=== PATIENT | female | born 1965 | race Caucasian/White ===

== ENCOUNTER 2016-07-30 21:03 | Emergency (ER) | payer MEDICARE, MEDICAID ==
[~2016-07-30] VITALS: Ht 144.8 cm; Wt 64.9 kg
[2016-07-30] MEDS ORDERED: QUET25TA PO (21:54)
[2016-07-30] MEDS ORDERED: QUET200T57 PO (21:54)
[2016-07-30] MEDS ORDERED: OMEP20CA12 PO (21:54)
[2016-07-30] MEDS ORDERED: QUET100T69 PO (21:54)
[2016-07-30] MEDS ORDERED: CITA20TA7 PO (21:54)
[2016-07-30] MEDS ORDERED: TETANUS,DIPTH,PERTUSS P/F (BOOSTRIX) 0.5 ML VIAL IM ONE (22:15)
[2016-07-30] MEDS ORDERED: L.E.T. SYRINGE 5 ML TOP ONE (22:15)
--- NOTE | 2016-07-30 23:11 | ED General ---
General Chief Complaint: Laceration Stated Complaint: R LEG LAC Nursing Triage Note: LACERATION TO RIGHT DISTAL LEG Nursing Sepsis Screen: No Definite Risk Source of Information: Caregiver Exam Limitations: No Limitations History of Present Illness Time Seen by Provider: 21:51 Initial Comments This 51-year-old developmentally disabled woman is brought to the emergency room by her caregiving staff. She reportedly got her right lower leg caught in the mechanism of a recliner leg rest. Her leg was between the chair and leg rest when the recliner was folded. She then attempted to pull her leg out and a lacerated the skin over her vázquez. The laceration is approximately 7 cm in length. It is no longer bleeding. Patient is not up-to-date on her tetanus immunizations. No other injuries were identified. She has been able to bear weight on the limb since then. Allergies and Home Medications Allergies Coded Allergies: clindamycin (Verified Allergy, Unknown, 06/21/05) tetracycline (Verified Allergy, Unknown, 07/30/16) Home Medications Citalopram Hydrobromide 20 Mg Tablet, 1 TAB PO UD, #28 (Reported) Omeprazole 20 Mg Capsule.dr, 1 CAP PO UD, #28 (Reported) Quetiapine Fumarate 100 Mg Tablet, 1 TAB PO UD, #28 (Reported) Quetiapine Fumarate 200 Mg Tablet, 1 TAB PO UD, #56 (Reported) Quetiapine Fumarate 25 Mg Tablet, Unknown Dose PO, (Reported) Constitutional: no symptoms reported EENTM: no symptoms reported Respiratory: no symptoms reported Cardiovascular: no symptoms reported Gastrointestinal: no symptoms reported Genitourinary: no symptoms reported Musculoskeletal: no symptoms reported Skin: see HPI Psychiatric/Neurological: See HPI Hematologic/Lymphatic: No Symptoms Reported Past Mwkwkml-Vetuyb-Dirlfn Hx Patient Social History Alcohol Use: Denies Use Recreational Drug Use: No Smoking Status: Never a Smoker Recent Foreign Travel: No Contact w/Someone Who Travel: No Recent Infectious Disease Expo: No Recent Hopitalizations: No Immunizations Up To Date Tetanus Booster (TDap): More than 5yrs Seasonal Allergies Seasonal Allergies: No Surgeries HX Surgeries: Yes (DENTAL) Surgeries: Orthopedic Respiratory Hx Respiratory Disorders: No Cardiovascular Hx Cardiac Disorders: No Neurological Hx Neurological Disorders: Yes (developmental disabilities) Neurological Disorders: TIA Genitourinary Hx Genitourinary Disorders: No Gastrointestinal Hx Gastrointestinal Disorders: Yes Gastrointestinal Disorders: Gastroesophageal Reflux Musculoskeletal Hx Musculoskeletal Disorders: Yes Musculoskeletal Disorders: Foot Drop Endocrine Hx Endocrine Disorders: No HEENT HX ENT Disorders: No Cancer Hx Cancer: No Psychosocial Hx Psychiatric Problems: Yes Behavioral Health Disorders: Violent Behavior Integumentary HX Skin/Integumentary Disorder: No Blood Transfusions Hx Blood Disorders: No Physical Exam Vital Signs Vital Sign - Last 12Hours 07/30/16 21:55 Temp 98.1 Pulse 89 Resp 18 B/P (MAP) 113/82 Pulse Ox 96 O2 Delivery Room Air Capillary Refill : Less Than 3 Seconds General Appearance: No Apparent Distress, WD/WN HEENT: Normal ENT Inspection Extremity: Other (baseline contractures. 7 cm laceration on the right anterior lower leg into the subcutaneous tissue. No active bleeding.) Neurologic/Psychiatric: Other (cognitive deficits at baseline) Skin: Normal Color, Warm/Dry, Other (see above) Laceration Repair : Wound Location: Lower Extremities Other Wound Location Right anterior lower leg Wound Length (cm): 7 Wound's Depth, Shape: linear, sub Q Wound Explored: clean Irrigated w/ Saline (ccs): 500 Betadine Prep?: Yes Staple Repair: Stapler 35W, Patient Given Remover Progress Wound was anesthetized topically with LET. It was then rinsed under pressure with 500 mL normal saline. Betadine was applied. Skin was approximated with 11 ivet. Patient tolerated the procedure well. Progress/Results/Core Measures Results/Orders My Orders Orders - BILL PIERCE MD Let Solution (Let Solution) (07/30/16 22:15) Dipht,Pertuss(Acell),Tet Adult (Boostrix (07/30/16 22:15) Tibia/Fibula, Right, 2 Views (07/30/16 22:01) Medications Given in ED Current Medications Medications Dose Ordered Sig/Heather Route Start Time Stop Time Status Last Admin Dose Admin Diphtheria/ Tetanus/Acell Pertussis 0.5 ml ONCE ONCE IM 07/30/16 22:15 07/30/16 22:16 DC 07/30/16 22:08 0.5 ML Tetracaine/ Epinephrine/ Lidocaine 1 ea ONCE ONCE TOP 07/30/16 22:15 07/30/16 22:16 DC 07/30/16 22:08 1 EA Vital Signs/I&O Vital Sign - Last 12Hours 07/30/16 07/30/16 07/30/16 21:55 22:08 23:16 Temp 98.1 98.1 98.0 Pulse 89 84 Resp 18 18 B/P (MAP) 113/82 Pulse Ox 96 95 O2 Delivery Room Air Blood Pressure Mean: 92 Progress Note : Progress Note LET was applied for topical anesthesia. The 7 cm laceration was cleaned and repaired with 11 ivet. Patient was given a Boostrix tetanus booster. X-ray showed no evidence of bony injury. Diagnostic Imaging Diagonstic Imaging: Xray Plain Films/CT/US/NM/MRI: leg Comments Right tib-fib x-ray was viewed by me. Report not yet available. No bony injuries or foreign bodies identified. Departure Impression Impression: Primary Impression: Laceration of leg Qualified Codes: S81.811A - Laceration without foreign body, right lower leg, initial encounter Disposition: HOME, SELF-CARE Condition: Improved Departure-Patient Inst. Decision time for Depature: 23:00 Referrals: [facility] (PCP) Primary Care Physician MECHELLE WESTON (Family) Primary Care Physician Patient Instructions: Laceration Repair With Ivet (DC) Add. Discharge Instructions: Keep the wound clean and dry. Cover until drainage stops. You may apply antibiotic ointment to prevent dressing from sticking. You may shower as usual but avoid submerging until ivet are removed. Remove ivet in about 10 days. Monitor for signs of infection including increasing redness, increasing pain, increasing swelling, puslike drainage, or fever. Return to care if you notice any of these symptoms. Give Tylenol (acetaminophen) up to 1000 mg every 6 hours as needed for pain. All discharge instructions reviewed with patient and/or family. Voiced understanding. BILL PIERCE MD Jul 30, 2016 23:10
[2016-07-30 23:16] VITALS: BP 108/80
--- NOTE | 2016-07-31 08:12 | Diagnostic Imaging Report ---
EXAMINATION: 2 views of the right tibia and fibula. INDICATION: Laceration in the lower right leg. FINDINGS: No fracture, dislocation or radiopaque foreign body seen. The proximal and distal joints appear grossly unremarkable. Suggestion of soft tissue laceration in the lower leg is noted with no radiopaque foreign body or significant soft tissue gas seen. IMPRESSION: No fracture seen. No radiopaque foreign body. Dictated by: Dictated on workstation # [id number]
== END 2016-07-30 23:14 | disposition home or self-care (01) ==
LOC: EDUNIT# 21:03 → ER 21:05
DX: S81.811A Laceration without foreign body, right lower leg, initial encounter (principal); Z23 Encounter for immunization; F79 Unspecified intellectual disabilities; W22.03XA Walked into furniture, initial encounter; Y92.009 Unspecified place in unspecified non-institutional (private) residence as the place of occurrence of the external cause; Y99.8 Other external cause status
CPT/HCPCS: 12002; 73590; 90471; 90715

== ENCOUNTER 2016-08-10 12:36 | Emergency (ER) | payer MEDICARE, MEDICAID ==
[~2016-08-10] VITALS: Ht 144.8 cm; Wt 64.9 kg
[~2016-08-10 12:36] MED LIST: CITA20TA7 PO; OMEP20CA12 PO; QUET100T69 PO; QUET200T57 PO; QUET25TA PO
[2016-08-10] MEDS ORDERED: L.E.T. SYRINGE 5 ML MM STA (12:42)
--- NOTE | 2016-08-10 13:28 | ED Fall/Injury ---
General Chief Complaint: Trauma-Non Activation Stated Complaint: FALL Source: patient Exam Limitations: no limitations History of Present Illness Time seen by provider: 12:40 Initial Comments Here with report of fall out of her chair today. Patient is very MR and apparently fell forward and hit her head. She has a 2 cm superficial laceration to the left upper forehead. No other injuries from this incident. She has a healing wound on the right lower extremity from previous injury that is now red and inflamed. No fevers reported. Patient is unable to answer for self. Occurred: just prior to arrival Severity: mild Injuries/Pain Location: head Context: unknown Loss of Consciousness: no loss of consciousness Associated Symptoms (Fall): No Nausea/Vomiting Allergies and Home Medications Allergies Coded Allergies: clindamycin (Verified Allergy, Unknown, 06/21/05) tetracycline (Verified Allergy, Unknown, 07/30/16) Home Medications Citalopram Hydrobromide 20 Mg Tablet, 1 TAB PO UD, #28 (Reported) Omeprazole 20 Mg Capsule.dr, 1 CAP PO UD, #28 (Reported) Quetiapine Fumarate 100 Mg Tablet, 1 TAB PO UD, #28 (Reported) Quetiapine Fumarate 200 Mg Tablet, 1 TAB PO UD, #56 (Reported) Quetiapine Fumarate 25 Mg Tablet, Unknown Dose PO, (Reported) Constitutional: see HPI, No chills, No fever Gastrointestinal: No diarrhea, No vomiting Musculoskeletal: no symptoms reported Skin: see HPI, other (redness and drainage from right lower extremity wound) Other Unable to complete review of systems due to patient's underlying MR condition. Past Lggfzpv-Lvbmbr-Ptmusg Hx Patient Social History Alcohol Use: Denies Use Recreational Drug Use: No Smoking Status: Never a Smoker 2nd Hand Smoke Exposure: No Recent Hopitalizations: No Immunizations Up To Date Tetanus Booster (TDap): More than 5yrs Seasonal Allergies Seasonal Allergies: No Surgeries HX Surgeries: Yes (DENTAL) Surgeries: Orthopedic Respiratory Hx Respiratory Disorders: No Cardiovascular Hx Cardiac Disorders: No Neurological Hx Neurological Disorders: Yes (developmental disabilities) Neurological Disorders: TIA Genitourinary Hx Genitourinary Disorders: No Gastrointestinal Hx Gastrointestinal Disorders: Yes Gastrointestinal Disorders: Gastroesophageal Reflux Musculoskeletal Hx Musculoskeletal Disorders: Yes Musculoskeletal Disorders: Foot Drop Endocrine Hx Endocrine Disorders: No HEENT HX ENT Disorders: No Cancer Hx Cancer: No Psychosocial Hx Psychiatric Problems: Yes Behavioral Health Disorders: Violent Behavior Integumentary HX Skin/Integumentary Disorder: No Blood Transfusions Hx Blood Disorders: No Reviewed Nursing Assessment Reviewed/Agree w Nursing PMH: Yes Physical Exam Vital Signs Capillary Refill : General Appearance: WD/WN, no apparent distress HEENT: PERRL/EOMI, TMs normal Neck: full range of motion, supple Cardiovascular: regular rate, rhythm, no murmur Respiratory: lungs clear, normal breath sounds Neurologic/Psychiatric: alert, normal mood/affect Skin: warm/dry, other (wound to right lower extremity with surrounding erythema and clear drainage. Wound to forehead is superficial and 2 cm with bleeding controlled.) Comments Patient is awake and alert and responsive to family. Laceration Repair : Wound Location: Face Other Wound Location Left upper forehead Wound Length (cm): 2 Wound's Depth, Shape: superficial Wound Explored: contaminated Irrigated w/ Saline (ccs): 50 Betadine Prep?: No (Hibiclens) Anesthesia: Lidocaine w/ Epi (LET) Volume Anesthetic (ccs): 4 Wound Debrided: minimal Other Closure Supply: Wound Adhesive Progress/Results/Core Measures Results/Orders My Orders Orders - BERNARD FRIED MD Let Solution (Let Solution) (08/10/16 12:42) Progress Note : Progress Note Seen and evaluated. LET applied to wound after wound cleaned. We will be unable to do CT scan as patient would not tolerate holding still for the scan. This was discussed with the family who agree. Wound closed with skin glue with good approximation. We will initiate outpatient treatment for wound infection to the right lower extremity with outpatient antibiotics. Discharged home with return precautions. Family verbalize understanding of instructions and agreement with plan. Departure Impression Impression: Primary Impression: Forehead laceration Qualified Codes: S01.81XA - Laceration without foreign body of other part of head, initial encounter Additional Impression: Wound infection, posttraumatic Disposition: 01 HOME, SELF-CARE Condition: Improved Departure-Patient Inst. Decision time for Depature: 13:45 Referrals: [facility] (PCP/Family) Primary Care Physician Patient Instructions: Cellulitis (Skin Infection), Adult (DC), Laceration Repair With Glue (DC) Add. Discharge Instructions: All discharge instructions reviewed with patient and/or family. Voiced understanding. You may use antibiotic ointment over the wound on the leg. Do not use antibiotic ointment on the wound of the forehead. You may keep wounds covered with Band-Aid. Do not pick skin glue off until it is completely released. This should be in for 5 days. If glue comes off earlier, cover with a Band- Aid. Return for worse pain, swelling, red streaks expanding from the wound or other concerns as needed. Scripts Sulfamethoxazole/Trimethoprim (Sulfamethoxazole-Tmp Ds Tablet) 1 Each Tablet 1 EACH PO BID, #20 TAB 0 Refills Prov: BERNARD FRIED MD 08/10/16 BERNARD FRIED MD Aug 10, 2016 13:28
[2016-08-10] MEDS ORDERED: SULF-222 PO (13:49)
[2016-08-10 14:27] VITALS: BP 138/98
== END 2016-08-10 14:27 | disposition home or self-care (01) ==
LOC: EDUNIT# 12:36 → ER 12:37
DX: S01.81XA Laceration without foreign body of other part of head, initial encounter (principal); L03.115 Cellulitis of right lower limb; F72 Severe intellectual disabilities; W07.XXXA Fall from chair, initial encounter; Y92.129 Unspecified place in nursing home as the place of occurrence of the external cause; Y99.8 Other external cause status
CPT/HCPCS: 12001

== ENCOUNTER 2016-11-11 13:30 | Outpatient (RCR) | payer MEDICARE, MEDICAID ==
[~2016-11-11 13:30] MED LIST changes: +SULF-222 PO
== END 2016-11-11 16:00 | disposition home or self-care (01) ==
LOC: WOUNDCARE 13:30
PROVIDERS: ATTEND Surgery
DX: S81.811A Laceration without foreign body, right lower leg, initial encounter (principal); L03.115 Cellulitis of right lower limb; R41.843 Psychomotor deficit; X58.XXXA Exposure to other specified factors, initial encounter
CPT/HCPCS: 11042; 97597; 99212; 99213